=== PATIENT | male | born 1965 | race Hispanic/Latino ===

== ENCOUNTER 2022-04-20 12:11 | Emergency (ER) | payer OTHER, MEDICARE ==
[~2022-04-20] VITALS: Ht 182.9 cm; Wt 93.0 kg
[2022-04-20 12:12] VITALS: BP 167/89
[2022-04-20] MEDS ORDERED: IBUP-2070 PO (14:18)
[2022-04-20] MEDS ORDERED: MUPI22OI2 TP (14:18)
[2022-04-20] MEDS ORDERED: IBUPROFEN 600 MG TABLET PO ONE (14:30)
== END 2022-04-20 14:38 | disposition home or self-care (01) ==
LOC: EDH 12:11
DX: H00.011 Hordeolum externum right upper eyelid (principal)

== ENCOUNTER 2022-07-02 12:00 | Emergency (ER) | payer OTHER, MEDICARE ==
[~2022-07-02] VITALS: Ht 182.9 cm; Wt 90.7 kg
[~2022-07-02 12:00] MED LIST: IBUP-2070 PO; MUPI22OI2 TP
[2022-07-02] MEDS ORDERED: LIDOCAINE HCL 1% 20 ML VIAL INJ STA (13:40)
[2022-07-02] MEDS ORDERED: LIDOCAINE HCL 1% 10 ML VIAL ONE (13:47)
[2022-07-02] MEDS ORDERED: CEPH500B PO (14:18)
[2022-07-02 14:31] VITALS: BP 138/74
== END 2022-07-02 14:25 | disposition home or self-care (01) ==
LOC: EDH 12:00
DX: L03.011 Cellulitis of right finger (principal)
CPT/HCPCS: 99283; J3490

== ENCOUNTER 2023-09-11 21:21 | Emergency (ER) | payer MEDICARE ==
[~2023-09-11] VITALS: Ht 182.9 cm; Wt 88.5 kg
[~2023-09-11 21:21] MED LIST changes: +CEPH500B PO
[2023-09-11] MEDS ORDERED: ACETAMINOPHEN 500 MG TABLET ONE (21:29)
[2023-09-11 22:14] LABS: RAPID GROUP A STREP negative (NEGATIVE)
[2023-09-11 22:20] LABS: SARS-CoV-2, RNA, NAAT NEGATIVE SARS CoV-2 (NEGATIVE)
[2023-09-11 22:24] LABS: INFLUENZA TYPE A Negative For Type A (NEGATIVE); INFLUENZA TYPE B Negative For Type B (NEGATIVE)
[2023-09-11 22:33] VITALS: TEMP 99.1
[2023-09-11] MEDS ORDERED: BENZ200C53 PO (23:23)
[2023-09-11] MEDS ORDERED: BROM118S48 PO (23:23)
[2023-09-11 23:53] VITALS: BP 131/70; PULSE 78; RESP 14; O2SAT 97
== END 2023-09-12 00:02 | disposition home or self-care (01) ==
LOC: EDH 21:21
DX: J06.9 Acute upper respiratory infection, unspecified (principal); B34.9 Viral infection, unspecified; R05.9 Cough, unspecified; Z20.822 Contact with and (suspected) exposure to COVID-19
CPT/HCPCS: 99284; 71045; 87635; 87880; 87804 ×2; C9803

== ENCOUNTER 2024-05-04 08:51 | Emergency (ER) | payer MEDICARE ==
[~2024-05-04] VITALS: Ht 182.9 cm; Wt 97.5 kg
[~2024-05-04 08:51] MED LIST changes: +BENZ200C53 PO; +BROM118S48 PO
[2024-05-04] MEDS ORDERED: AMOX-426 PO (09:20)
[2024-05-04] MEDS ORDERED: OXYC-38 PO (09:20)
[2024-05-04] MEDS: OXYCODONE/ACETAMIN 5/325MG TAB PO ONE (09:44)
[2024-05-04] MEDS: KETOROLAC 60 MG VIAL (30MG/ML) IM ONE (09:44)
[2024-05-04 10:04] VITALS: BP 136/80; PULSE 65; RESP 18; O2SAT 98
== END 2024-05-04 10:24 | disposition home or self-care (01) ==
LOC: EDH 08:51
DX: K08.89 Other specified disorders of teeth and supporting structures (principal); Z79.899 Other long term (current) drug therapy
CPT/HCPCS: 99283; 96372; J1885

== ENCOUNTER 2025-04-18 07:25 | Emergency (ER) | payer MEDICARE ==
[~2025-04-18] VITALS: Ht 182.9 cm; Wt 81.6 kg
[~2025-04-18 07:25] MED LIST changes: +AMOX-426 PO; +OXYC-38 PO
[2025-04-18 08:08] LABS: IMMATURE GRANULOCYTE ABSOLUTE 0.04 K/uL (0-1); NUCLEATED RED BLOOD CELLS 0.0 % (0.0-0.19); PLATELET COUNT (AUTO) 302 K/uL (130-400); RED BLOOD CELL COUNT(AUTO) 5.11 MIL/uL (4.50-6.20); RED CELL DISTRIBUTION WIDTH 13.4 % (11.0-15.5); WHITE BLOOD COUNT (AUTO) 12.9 K/uL (4.8-10.8)
[2025-04-18 08:16] LABS: CREATININE 0.9 mg/dL (0.5-1.3); GLOMERULAR FILTR. RATE CALC 98.0 mL/min (>90); GLUCOSE,RANDOM 172.0 mg/dL (70-105); SODIUM SERUM 142.0 mmol/L (136-145); UREA NITROGEN, BLOOD 15.0 mg/dL (7-18)
[2025-04-18] MEDS ORDERED: NAPR-1506 PO (08:34)
[2025-04-18] MEDS ORDERED: CLIN-141 PO (08:34)
--- NOTE | 2025-04-18 08:34 | ERN ---
General Chief Complaint: Tooth Ache/Pain Stated Complaint: TOOTHACHE Time Seen by MD: 07:27 Source: patient History of Present Illness Initial Comments PATIENT IS A 59-YEAR-OLD GENTLEMAN COMING IN COMPLAINING OF TOOTHACHE. PER PATIENT HE DOES HAS A HISTORY OF PERIODONTAL DISEASE AND FREQUENT TOOTH INFECTIONS. STATES THAT TWO DAYS AGO HE STARTED HAVING DISCOMFORT ON HIS LEFT U PPER MOLAR. HE ALSO STATES HE HAS A MILD FACIAL DISCOMFORT. NO FEVER OR CHILLS. Allergies: Coded Allergies: No Known Allergies (Unverified Allergy, Unknown, 04/20/22) Home Meds Active Scripts Naproxen (Naproxen) 500 Mg Tablet.dr, 500 MG PO BID for 7 Days, #14 TAB Prov:MARIA R WILLARD MD 04/18/25 Clindamycin HCl (Clindamycin HCl) 300 Mg Capsule, 1 CAP PO TID for 10 Days, #30 CAP 0 Refills Prov:MARIA R WILLARD MD 04/18/25 Oxycodone HCl/Acetaminophen (Percocet 5-325 mg Tablet) 5 Mg-325 Mg Tablet, 1 EACH PO TID PRN for PAIN LEVEL 6 TO 10, #7 TAB Prov:KERRY GOMEZ MD 05/04/24 Amoxicillin/Potassium Clav (Augmentin 500-125 Tablet) 500 Mg-125 Mg Tablet, 1 EACH PO twice daily for 10 Days, #20 TAB Prov:KERRY GOMEZ MD 05/04/24 D-Methorphan Hb/P-Epd HCl/Bpm (Bromfed Dm Cough Syrup) 2 Mg-30 Mg-10 Mg/5 Ml Syrup, 10 ML PO Q4HPRN PRN for COUGH for 10 Days, #100 ML Prov:ROSAMARIA BUSTAMANTE 09/11/23 Benzonatate (Benzonatate) 200 Mg Capsule, 200 MG PO TID PRN for COUGH for 14 Days, #42 CAP Prov:ROSAMARIA BUSTAMANTE 09/11/23 Cephalexin Monohydrate (Keflex) 500 Mg Cap, 500 MG PO TID for 7 Days, #21 CAP Prov:MARIA R WILLARD MD 07/02/22 Mupirocin (Mupirocin Ointment) 22 Gm Oint, 22 GM TP BID, #1 APPL Prov:MARGIE ANDREWP 04/20/22 Ibuprofen (Ibuprofen) 600 Mg Tablet, 600 MG PO Q6H PRN for PAIN, #15 TAB Prov:MARGIE ANDREW 04/20/22 Past Medical History Past Medical History: No Pertinent History Past Surgical History: None Social History Social History: Lives with family ROS Dictation CONSTITUTIONAL: NO CHILLS, NO FEVER, NO WEAKNESS, NO DIAPHORESIS, NO MALAISE. HEAD/FACE: NO SIGNS OF TRAUMA. EENT: NO EYE PAIN, NO BLURRED VISION, NO TEARING, NO DOUBLE VISION, NO EAR PAIN, NO EAR DISCHARGE, NO NOSE PAIN, NO NASAL CONGESTION, NO THROAT PAIN, NO THROAT SWELLING, MOUTH PAIN. RESPIRATORY: NO COUGH, NO ORTHOPNEA, NO SOB, NO STRIDOR, NO WHEEZING. CARDIOVASCULAR: NO CHEST PAIN, NO EDEMA, NO PALPITATIONS, NO SYNCOPE. GASTROINTESTINAL/ABDOMINAL: NO ABDOMINAL PAIN, NO CONSTIPATION, NO DIARRHEA, NO NAUSEA, NO VOMITING. GENITOURINARY: NO ABNORMAL DISCHARGE, NO DYSURIA, NO FREQUENT URINATION, NO HEMATURIA. NO COMPLAINTS OF PAIN IN THE GENITALS. MUSCULOSKELETAL: NO BACK PAIN, NO GOUT, NO JOINT PAIN, NO JOINT SWELLING, NO MUSCLE PAIN, NO MUSCLE STIFFNESS, NO NECK PAIN. INTEGUMENTARY: NO CHANGE IN COLOR, NO CHANGE IN HAIR/NAILS, NO DRYNESS, NO LESION, NO LUMPS, NO RASH. NEUROLOGICAL/PSYCH: NO ANXIETY, NOT DEPRESSED, NO EMOTIONAL PROBLEM, NO HEADACHE, NO NUMBNESS, NO PRE-EXISTING DEFICIT, NO HISTORY OF SEIZURES, NO TREMORS, NO WEAKNESS. HEMATOLOGIC/LYMPHATIC: NOT ANEMIC, NO HISTORY OF BLOOD CLOTS, NO APPARENT BLEEDING, NO BRUISING, GLANDS NOT SWOLLEN. ALL SYSTEMS NEGATIVE, EXCEPT NOTED. Physical Exam Physical Exam Dictation VITAL SIGNS: REVIEWED. GENERAL APPEARANCE: ALERT, ORIENTED X3, NO ACUTE DISTRESS, OBESE. HEAD AND FACE: NON-TRAUMATIC. EYES: PERRL, PINK CONJUNCTIVAS, EYELID NO TRAUMA, ANTERIOR CHAMBER CLEAR. EARS: PINNAS INTACT AND NO SIGNS OF TRAUMA OR ERYTHEMA. EAR CANALS CLEAR AND NO DISCHARGE. TMS NO ERYTHEMA. NOSE: NO DISCHARGE, NO BLEEDING. OROPHARYNX: MOUTH NORMAL, TEETH CARIES , TOOTH # 3 PERIODONTAL DISEASE, , TONGUE PINK. PHARYNX CLEAR, NO ERYTHEMA. TONSILS NO EXUDATES, NO ABSCESSES NOTED. MUCOUS MEMBRANE MOIST. NECK: SUPPLE, NON-TENDER, NO THYROMEGALY, NO MASSES, NO JVD, NO BRUITS. BREAST: DEFERRED. CHEST: NO TENDERNESS, NO CREPITUS, NO PARADOXICAL MOVEMENT, NO RETRACTIONS. LUNGS: CLEAR, WELL-VENTILATED, SYMMETRIC, NO RALES, NO WHEEZING, NO RHONCHI, NO STRIDOR, GOOD BREATH SOUNDS BILATERALLY. HEART: REGULAR RATE, REGULAR RHYTHM, NO MURMUR, NO GALLOPS. VASCULAR: NO PERIPHERAL EDEMA. ABDOMEN: SOFT, POSITIVE BOWEL SOUNDS, NONDISTENDED, NO GUARDING, NONTENDER, NO REBOUND, NO MASSES NO HEPATOMEGALY, NO SPLENOMEGALY, NO COLLINS'S SIGN, NO HER NIAS. RECTAL: DEFERRED. GENITAL: DEFERRED. NEUROLOGICAL: NORMAL SPEECH, GROSS MOTOR FUNCTION INTACT, GROSS SENSORY FUNCTION INTACT. MUSCULOSKELETAL: NECK NONTENDER, FULL RANGE OF MOTION, BACK NONTENDER, FULL RANGE OF MOTION. EXTREMITIES: NONTENDER, FULL RANGE OF MOTION. SKIN: COLOR PINK, DRY, NO TURGOR, NO RASH, NO LACERATIONS, NO ABRASIONS, NO CONTUSIONS. LYMPHATICS: DEFERRED. Results Laboratory and Microbiology Lab and Micro Result Laboratory Tests Test 04/18/25 08:00 White Blood Count 12.9 K/uL (4.8-10.8) H Red Blood Count 5.11 MIL/uL (4.50-6.20) Hemoglobin 15.3 g/dL (14.0-18.0) Hematocrit 45.4 % (42-54) Mean Corpuscular Volume 88.8 fL (79-99) Mean Corpuscular Hemoglobin 29.9 pg (27.0-33.0) Mean Corpuscular Hemoglobin Concent 33.7 g/dL (32.0-36.0) Red Cell Distribution Width 13.4 % (11.0-15.5) Platelet Count 302 K/uL (130-400) Mean Platelet Volume 10.1 fL (7.5-10.5) Immature Granulocyte % (Auto) 0.3 % (0-1) Neutrophils (%) (Auto) 71.0 % (40.0-77.0) Lymphocytes (%) (Auto) 19.0 % (21.0-51.0) L Monocytes (%) (Auto) 7.2 % (3.0-13.0) Eosinophils (%) (Auto) 2.3 % (0.0-8.0) Basophils (%) (Auto) 0.2 % (0.0-5.0) Neutrophils # (Auto) 9.1 K/uL (1.8-7.7) H Lymphocytes # (Auto) 2.4 K/uL (1.0-4.8) Monocytes # (Auto) 0.9 K/uL (0.1-1.0) Eosinophils # (Auto) 0.29 K/uL (0.00-0.70) Basophils # (Auto) 0.03 K/uL (0.00-0.20) Absolute Immature Granulocyte (auto 0.04 K/uL (0-1) Nucleated Red Blood Cells 0.0 % (0.0-0.19) Sodium Level 142 mmol/L (136-145) Potassium Level 4.0 mmol/L (3.5-5.1) Chloride Level 103 mmol/L (101-111) Carbon Dioxide Level 27 mmol/L (21-32) Blood Urea Nitrogen 15 mg/dL (7-18) Creatinine 0.9 mg/dL (0.5-1.3) Glomerular Filtration Rate Calc 98 mL/min (>90) Random Glucose 172 mg/dL (70-105) H Total Calcium 9.1 mg/dL (8.5-10.1) Labs Reviewed?: Yes MDM MDM: DIFFERENTIAL DIAGNOSIS: PERIODONTAL DISEASE, CAVITIES, RATIONALE: TESTS CONSIDERED AND ORDERED SECONDARY TO SHARED DECISION MAKING INCLUDE: PREVIOUS OUTSIDE RECORDS REVIEWED: OLD ER VISITS. RISK OF COMPLICATION AND/OR MORBIDITY OR MORTALITY OF PATIENT MANAGEMENT: NONE MEDICATIONS-PER MEDICATION RECONCILIATION NEED FOR HOSPITALIZATION: PATIENT DOES NOT MEET CRITERIA FOR HOSPITALIZATION. PATIENT IS A 59-YEAR-OLD GENTLEMAN COMING IN COMPLAINING OF PAIN. ON PHYSICAL EXAM THERE IS A ERYTHEMA MILD SWELLING OF THE LEFT FACIAL SIDE NO FLUCTUANCE. PATIENT WILL BE DISCHARGED WITH A DIAGNOSIS OF PERIODONTAL DISEASE. ANTIBIOTICS WERE GIVEN AND PATIENT WILL BE DISCHARGED WITH ORAL ANTIBIOTICS. DID ADVISED HIM APPROPRIATE FOLLOW UP WITH THE PCP AND/OR DENTIST FOR ONGOING MANAGEMENT. ED Course Orders Procedure Category Date Status Time Cbc With Differential LAB 04/18/25 Complete 07:30 Basic Metabolic Panel LAB 04/18/25 Complete 07:30 Clindamycin Ivpb PHA 04/18/25 Complete 600mg/50ml (Cleocin 08:25 Ketorolac PHA 04/18/25 Complete Tromethamine 30mg/Ml 08:30 Methylprednisolone PHA 04/18/25 Complete Succ 40mg (Solu-Medro 08:30 Current Medications Medications (Trade) Dose Ordered Sig/Marcel Route PRN Reason Start Time Stop Time Status Last Admin Dose Admin Clindamycin HCl/ Dextrose 50 ml @ 100 mls/hr Q8H STAT IV 04/18/25 08:25 04/18/25 08:54 DC 04/18/25 08:39 Ketorolac Tromethamine (toRADol) 30 mg ONCE ONCE IVP 04/18/25 08:30 04/18/25 08:31 DC 04/18/25 08:39 Methylprednisolone Sodium Succinate (Solu-medROL 40MG) 60 mg ONCE ONCE IVP 04/18/25 08:30 04/18/25 08:31 DC 04/18/25 08:39 Vital Signs Date Time Temp Pulse Resp B/P (MAP) Pulse Ox O2 Delivery O2 Flow Rate FiO2 04/18/25 07:29 97.9 67 20 143/93 99 Room Air DX & DISP Disposition: Discharge Departure Impression: Primary Impression: Periodontal disease Condition: Stable Scripts Naproxen (Naproxen) 500 Mg Tablet.dr 500 MG PO BID for 7 Days, #14 TAB Prov: MARIA R WILLARD MD 04/18/25 Clindamycin HCl (Clindamycin HCl) 300 Mg Capsule 1 CAP PO TID for 10 Days, #30 CAP 0 Refills Prov: MARIA R WILLARD MD 04/18/25 Additional Instructions: FOLLOW-UP WITH PRIMARY CARE PROVIDER IN 1 TO 2 DAYS. TAKE MEDICATIONS DIRECTED HERE IN THE EMERGENCY ROOM. OKAY TO CONTINUE HOME MEDICATIONS UNLESS OTHERWISE DISCUSSED DURING YOUR VISIT IN THE EMERGENCY ROOM TODAY. RETURN TO YOUR NEAREST EMERGENCY ROOM IF SYMPTOMS WORSEN OR IF THERE IS NO IMPROVEMENT. CALL 911 IF YOU NEED IMMEDIATE ASSISTANCE. TAKE TYLENOL [id number] NEEDED AND IF NO CONTRAINDICATIONS ARE PRESENT. INCREASE ORAL HYDRATION. A WOUND CULTURE OR URINE CULTURE WAS ORDERED HERE IN THE EMERGENCY ROOM DEPARTMENT PLEASE FOLLOW-UP WITH PRIMARY CARE PROVIDER AND ADVISE THEM TO GET REPORTS FROM OUR FACILITY. IF YOU HAD ANY RICHARD WRAP/SPLINTS THAT WERE APPLIED HERE, PLEASE DO NOT REMOVE THEM UNTIL YOU SEE YOUR PRIMARY CARE OR SPECIALTY. REFERRALS: Referrals: SELF,REFERRAL (PCP) TRISTA HERRERA MD Time of Disposition: 09:00 MARIA R WILLARD MD Apr 18, 2025 08:34
[2025-04-18] MEDS: Solu-medROL 40MG VIAL IVP ONE (08:39)
[2025-04-18] MEDS: CLINDAMYCIN IVPB 600MG/50ML 50 ML IV STA (08:39)
[2025-04-18 09:11] VITALS: BP 142/83; PULSE 60; RESP 16; TEMP 97.9; O2SAT 99
== END 2025-04-18 09:12 | disposition home or self-care (01) ==
LOC: EDH 07:25
DX: K05.6 Periodontal disease, unspecified (principal); Z79.899 Other long term (current) drug therapy
CPT/HCPCS: 99284; 96365; 96375; 80048; 85025; 36415; J1885; J2919; J3490